=== PATIENT | male | born 1940 | race Caucasian/White ===

== ENCOUNTER 2020-01-03 13:22 | Observation (INO) | payer MEDICARE, OTHER ==
[~2020-01-03] VITALS: Ht 182.9 cm; Wt 99.4 kg
--- NOTE | 2020-01-03 13:35 | NUR ---
PT CHEST TOO HAIRY TO GET A EKG IN TRIAGE. PT TO BE SHAVED TO GET AN APPROPIATE EKG
--- NOTE | 2020-01-03 13:53 | NUR ---
PATIENT WALKED BACK FROM TRIAGE WITH CHIEF C/O SOB AND DIZZINESS X3 DAYS. PATIENT RECENTLY HAD BLOOD CLOT IN LEFT LEG 12/11/2019 AND WAS PRESCRIBED XARELTO. PATIENT STATES THE DIZZINESS AND SOB COMES AND GOES. PATIENT'S HR 155, BP 82/48, O2 SATURATION 97% RA. NO SIGNS OF ACUTE DISTRESS, PATIENT ATTACHED TO PADS, CONNECTED TO PROCESS CONTROL PROGRAMMER.
--- NOTE | 2020-01-03 13:53 | NUR ---
ERMD NOTIFIED OF PATIENT IN ROOM, ERMD AT BEDSIDE FOR EVALUATION.
[2020-01-03] MEDS ORDERED: SODIUM CHLORIDE 0.9% 1,000ML IVBOLUS ONE (14:00)
[2020-01-03] MEDS ORDERED: ADENOSINE 6 MG/2 ML ONE (14:16)
[2020-01-03] MEDS ORDERED: ADENOSINE 6 MG/2 ML IVPush ONE ×2 (14:30)
--- NOTE | 2020-01-03 14:32 | NUR ---
DODIE AT BEDSIDE, PREET HADLEY AT BEDSIDE, GISELL JACKSON AT BEDSIDE, AND THIS RN PUSHED 6 MG ADENOSINE, HR WENT FROM 155 TO 50-60S. PATIENT TOLERATED WELL. WILL CONTINUE TO MONITOR, PATIENT CONNECTED TO GLASSWARE SELECTOR, AND DEFIB PADS.
[2020-01-03 14:33] LABS: ALANINE AMINOTRANSFERASE 30 U/L (12-78); ANION GAP 6 mmol/L (5-15); CALCIUM 9.2 mg/dL (8.5-10.1); CHLORIDE 107 mmol/L (98-107); CREATININE 3.15 mg/dL (0.7-1.3)
[2020-01-03 14:34] LABS: BASOPHILS % (AUTO) 0 % (0-1); EOSINOPHILS % (AUTO) 5 % (1-7); LYMPHOCYTES % (AUTO) 38 % (22-44); MEAN CORPUSCULAR HEMOGLOBIN 34.2 pg (27.5-34.5); MEAN CORPUSCULAR HGB CONC 33.4 g/dL (33.2-36.2); MEAN PLATELET VOLUME 7.8 fL (7.4-10.4); MONOCYTES % (AUTO) 7 % (2-9); NEUTROPHILS % (AUTO) 49 % (42-75); PLATELET COUNT 177 x10^3/uL (130-400); RED BLOOD COUNT 4.54 x10^6/uL (4.38-5.82); RED CELL DISTRIBUTION WIDTH 12.4 % (9.4-14.8)
[2020-01-03 14:37] LABS: ALKALINE PHOSPHATASE 63 U/L (45-117); BILIRUBIN,TOTAL 0.5 mg/dL (0.2-1.0); TOTAL PROTEIN 6.5 g/dL (6.4-8.2)
[2020-01-03 14:43] LABS: TROPONIN I 0.124 ng/mL (0.000-0.045)
[2020-01-03 14:46] LABS: INTERNATIONAL NORMALIZED RATIO 1.3 (0.93-1.1); PROTHROMBIN TIME 13.7 Seconds (9.6-11.5)
[2020-01-03 15:00] LABS: MD SCAN
--- NOTE | 2020-01-03 15:07 | NUR ---
PATIENT SITTING IN GURNEY, ATTACHED TO LUBE MAN, AND DEFIB PADS, PATIENT STATES CHEST DISCOMFORT HAS GONE AWAY, NO SIGNS OF ACUTE DISTRESS, SIDE RAILS UP X2, DAUGHTER AT BEDSIDE, CALL LIGHT WITHIN REACH.
[2020-01-03] MEDS ORDERED: ASPIRIN 81 MG TABLET CHEW PO ONE (16:00)
--- NOTE | 2020-01-03 16:06 | NUR ---
PATIENT AMBULATED TO BATHROOM WITH STEADY GAIT TO VOID. POST-RESIDUAL VOID BLADDER SCAN SHOWED 267 mLS. ERMD NOTIFIED.
[2020-01-03] MEDS ORDERED: ASPIRIN 81 MG TABLET CHEW ONE (16:13)
--- NOTE | 2020-01-03 16:14 | NUR ---
[facility] AT BEDSIDE TO DISCUSS ADMISSION.
--- NOTE | 2020-01-03 16:39 | NUR ---
SPOKE WITH DR. VALADEZ ABOUT POST-VOID RESIDUAL. PATIENT URINATED AND POST-VOID RESIDUAL BLADDER SCAN SHOWED 267 mLS, ORDER PLACED FOR COOPER BY ERMD. PER DR. VALADEZ NO NEED TO PLACE COOPER AT THIS TIME, STRAIGHT CATH X3 FOR POST-VOID RESIDUAL >350 mLS.
[2020-01-03] MEDS ORDERED: HEPARIN 5,000 UNITS/ML, 1ML ONE (16:56)
[2020-01-03] MEDS ORDERED: METOPROLOL TARTRATE 25 MG TAB ONE (16:56)
[2020-01-03] MEDS ORDERED: HEPARIN 25,000 UNITS/250ML PMX 0 ML ONE (16:57)
[2020-01-03] MEDS ORDERED: HEPARIN 5,000 UNITS/ML, 1ML IV PRN (17:00)
[2020-01-03] MEDS ORDERED: ONDANSETRON 2MG/ML, 2ML IVPush PRN (17:00)
[2020-01-03] MEDS ORDERED: MELATONIN 5 MG TABLET PO PRN (17:00)
[2020-01-03] MEDS ORDERED: DOCUSATE 100 MG CAPSULE PO PRN (17:00)
[2020-01-03] MEDS ORDERED: HEPARIN 25,000 UNITS/250ML PMX 250 ML IV PRN (17:00)
[2020-01-03] MEDS ORDERED: ACETAMINOPHEN 325 MG TABLET PO PRN (17:00)
--- NOTE | 2020-01-03 17:03 | NUR ---
REPORT CALLED TO PREET SANCHEZ FOR TRANSFER OF PATIENT CARE. Addendum: 01/03/20 at 1736 by SHANDRA REPORT CALLED TO PREET SANCHEZ BY THIS RN.
--- NOTE | 2020-01-03 17:31 | NUR ---
BREAK RN: US AT BEDSIDE.
--- NOTE | 2020-01-03 17:36 | NUR ---
REPORT GIVEN TO PREET LOUIE
[2020-01-03 17:38] LABS: TROPONIN I 0.264 ng/mL (0.000-0.045)
--- NOTE | 2020-01-03 17:42 | NUR ---
SPOKE WITH DR. VALADEZ AND INFORMED HER THAT PATIENT'S SECOND TROPONIN IS 0.264, SHE ACKNOWLEDGED, NO FURTHER ORDERS AT THIS TIME.
--- NOTE | 2020-01-03 18:01 | NUR ---
PATIENT TRANSFERRED IN STABLE CONDITION VIA GURNEY TO CARDIAC TELEMETRY FLOOR. ALL PATIENT BELONINGS GATHERED AND TAKEN WITH PATIENT'S DAUGHTER TO FLOOR.
[2020-01-03] MEDS: METOPROLOL TARTRATE 25 MG TAB PO SCH (18:03)
[2020-01-03] MEDS: LACTATED RINGERS 1,000 ML IV SCH (18:22)
[2020-01-03 19:04] VITALS: BP 131/80
[2020-01-03 19:22] LABS: MICROSCOPIC INDICATED
[2020-01-03] MEDS ORDERED: RIVA20TA PO (19:35)
[2020-01-03] MEDS ORDERED: LISI1TAB23 PO (19:42)
[2020-01-03] MEDS ORDERED: CHOL10003 PO (19:42)
[2020-01-03] MEDS ORDERED: CYAN100028 PO (19:42)
[2020-01-03] MEDS: SODIUM CHLORIDE FLUSH 10ML SYR IVF SCH (20:51)
[2020-01-03] MEDS ORDERED: ATORVASTATIN 40 MG TABLET PO SCH (21:00)
[2020-01-03 22:30] LABS: TROPONIN I 0.387 ng/mL (0.000-0.045)
[2020-01-04] MEDS: LACTATED RINGERS 1,000 ML IV SCH (00:30)
[2020-01-04 00:43] VITALS: BP 112/72
[2020-01-04] MEDS: METOPROLOL TARTRATE 25 MG TAB PO SCH ×2 (00:44→11:00)
[2020-01-04 01:45] VITALS: BP 130/77
[2020-01-04 06:14] LABS: BASOPHILS % (AUTO) 1 % (0-1); EOSINOPHILS % (AUTO) 12 % (1-7); LYMPHOCYTES % (AUTO) 39 % (22-44); MEAN CORPUSCULAR HEMOGLOBIN 34.7 pg (27.5-34.5); MEAN CORPUSCULAR HGB CONC 34.1 g/dL (33.2-36.2); MEAN PLATELET VOLUME 7.6 fL (7.4-10.4); MONOCYTES % (AUTO) 6 % (2-9); NEUTROPHILS % (AUTO) 42 % (42-75); PLATELET COUNT 154 x10^3/uL (130-400); RED BLOOD COUNT 4.21 x10^6/uL (4.38-5.82)
[2020-01-04 06:15] LABS: MD NO
[2020-01-04 06:18] LABS: ANION GAP 4 mmol/L (5-15); CALCIUM 8.9 mg/dL (8.5-10.1); CHLORIDE 110 mmol/L (98-107); CREATININE 1.36 mg/dL (0.7-1.3)
[2020-01-04 06:23] LABS: CHOL/HDL RATIO 3.5; LDL/HDL RATIO 2.1 (0.5-3.0)
[2020-01-04 06:45] VITALS: BP 123/73
[2020-01-04] MEDS ORDERED: TAMSULOSIN 0.4 MG CAP.ER.24H PO SCH (09:00)
[2020-01-04] MEDS ORDERED: REGADENOSON 0.4 MG/5 ML SYRINGE ONE (09:00)
[2020-01-04] MEDS ORDERED: ASPIRIN 81 MG TABLET CHEW PO SCH (09:00)
[2020-01-04] MEDS ORDERED: RIVAROXABAN 20 MG TABLET PO SCH (09:30)
[2020-01-04] MEDS: SODIUM CHLORIDE FLUSH 10ML SYR IVF SCH (11:00)
[2020-01-04] MEDS ORDERED: TAMS-11 PO (11:45)
[2020-01-04] MEDS ORDERED: ATOR40TA78 PO (11:45)
[2020-01-04] MEDS ORDERED: METO25TA35 PO (11:45)
== END 2020-01-04 12:50 | disposition home or self-care (01) ==
LOC: ED 15:30 → SUATTDRO 15:51 → 5SO 17:58 → DCLOUNGE 01-04 12:36
PROVIDERS: ADMIT Hospitalist; ATTEND Hospitalist
DX: I45.4 Nonspecific intraventricular block (principal); I47.1 Supraventricular tachycardia; N17.9 Acute kidney failure, unspecified; D75.89 Other specified diseases of blood and blood-forming organs; I21.A1 Myocardial infarction type 2; N40.0 Benign prostatic hyperplasia without lower urinary tract symptoms; N28.1 Cyst of kidney, acquired; I26.99 Other pulmonary embolism without acute cor pulmonale; R79.89 Other specified abnormal findings of blood chemistry; I82.402 Acute embolism and thrombosis of unspecified deep veins of left lower extremity; Z79.01 Long term (current) use of anticoagulants; Z79.899 Other long term (current) drug therapy; Z86.718 Personal history of other venous thrombosis and embolism
CPT/HCPCS: 36415; 71045; 76770; 78452; 80048; 80053; 80061; 81001; 82570; 82607; 83735; 83880; 84100; 84300; 84439; 84443; 84484; 85025; 85520; 85610; 85730; 93005; 93017; 93306; 96361; 96374; 99285; A9502; C9898; G0378; J0153; J2785; J7030; J7120

== ENCOUNTER → 2020-04-13 | Outpatient (CLI) | payer MEDICARE, BC ==
[~2020-04-13] MED LIST: ATOR40TA78 PO; CHOL10003 PO; CYAN100028 PO; LISI1TAB23 PO; METO25TA35 PO; RIVA20TA PO; TAMS-11 PO
== END | disposition home or self-care (01) ==
LOC: RAD 09:35
PROVIDERS: ATTEND Internal Medicine Cardiovascular Disease
DX: I82.462 Acute embolism and thrombosis of left calf muscular vein (principal); R60.9 Edema, unspecified

== ENCOUNTER → 2020-08-06 | Outpatient (CLI) | payer MEDICARE, BC ==
[2020-08-06 10:35] LABS: BASOPHILS % (AUTO) 1 % (0-1); EOSINOPHILS % (AUTO) 10 % (1-7); LYMPHOCYTES % (AUTO) 38 % (22-44); MEAN CORPUSCULAR HEMOGLOBIN 34.1 pg (27.5-34.5); MEAN CORPUSCULAR HGB CONC 34.1 g/dL (33.2-36.2); MEAN PLATELET VOLUME 6.9 fL (7.4-10.4); MONOCYTES % (AUTO) 6 % (2-9); NEUTROPHILS % (AUTO) 46 % (42-75); PLATELET COUNT 172 x10^3/uL (130-400); RED BLOOD COUNT 4.59 x10^6/uL (4.38-5.82); RED CELL DISTRIBUTION WIDTH 12.1 % (9.4-14.8)
[2020-08-06 10:45] LABS: CHLORIDE 108 mmol/L (98-107)
[2020-08-06 10:46] LABS: ALBUMIN 3.5 g/dL (3.4-5.0); ANION GAP 4 mmol/L (5-15); CALCIUM 9.4 mg/dL (8.5-10.1)
[2020-08-06 10:50] LABS: ALANINE AMINOTRANSFERASE 40 U/L (12-78); ALKALINE PHOSPHATASE 81 U/L (45-117); BILIRUBIN,TOTAL 1.3 mg/dL (0.2-1.0); CHOL/HDL RATIO 1.7; CHOLESTEROL, TOTAL 94 mg/dL (140-239); CREATININE 0.84 mg/dL (0.7-1.3); HDL CHOL % 57 % (26-37); HDL CHOLESTEROL (DIRECT) 54 mg/dL (40-60); LDL CHOLESTEROL,CALCULATED 30 mg/dL (54-169); LDL/HDL RATIO 0.6 (0.5-3.0); TOTAL PROTEIN 7.1 g/dL (6.4-8.2); TRIGLYCERIDES 48 mg/dL (50-200); VLDL CHOLESTEROL 10 mg/dL (0-25)
== END | disposition home or self-care (01) ==
LOC: LAB 10:15
PROVIDERS: ATTEND Internal Medicine Cardiovascular Disease
DX: I10 Essential (primary) hypertension (principal); E78.00 Pure hypercholesterolemia, unspecified; I47.1 Supraventricular tachycardia; I82.462 Acute embolism and thrombosis of left calf muscular vein
CPT/HCPCS: 36415; 80053; 80061; 85025